=== PATIENT | male | born 1985 | race Caucasian/White ===

== ENCOUNTER 2025-06-05 22:14 | Emergency (ER) | payer OTHER ==
[~2025-06-05] VITALS: Ht 170.2 cm; Wt 175.0 kg
[2025-06-05 22:46] LABS: GLUCOMETER DEV NAME(LOC) ERT.7; GLUCOSE,POINT OF CARE 243 MG/DL (70-110)
[2025-06-06] MEDS ORDERED: HYDR-4062 PO (00:37)
[2025-06-06 01:00] VITALS: BP 127/77; PULSE 74; RESP 20; TEMP 97.3; O2SAT 96
== END 2025-06-06 01:05 | disposition home or self-care (01) ==
LOC: EMS 22:22
DX: S93.401A Sprain of unspecified ligament of right ankle, initial encounter (principal); E11.9 Type 2 diabetes mellitus without complications; G47.30 Sleep apnea, unspecified; I48.91 Unspecified atrial fibrillation; Z79.01 Long term (current) use of anticoagulants; W01.0XXA Fall on same level from slipping, tripping and stumbling without subsequent striking against object, initial encounter; Y93.89 Activity, other specified; Y92.89 Other specified places as the place of occurrence of the external cause; Y99.8 Other external cause status
CPT/HCPCS: 70450; 82962; 93005; 99284